=== PATIENT | female | born 1950 | race Caucasian/White ===

== ENCOUNTER → 2017-10-21 | Outpatient (REF) | payer MEDICARE | LOC: M LAB REF 14:35 | DX: E04.2 Nontoxic multinodular goiter (principal) | CPT/HCPCS: 88173 ==

== ENCOUNTER 2018-11-03 13:08 | Outpatient (RCR) | payer MEDICARE ==
--- NOTE | 2018-11-03 15:00 | NUR ---
Pt presents w/ mild dysphonia which she describes as "gravely" quality and feeling like the words get "stuck." Pt also demonstrates decreased breath support with clavicular and thoracic breath patterns. Vocal quality is hoarse w/ intermittent breaks in phonation. This vocal quality is consistent across tasks including sustained phonation, connected speech, and voiced/voiceless phonemes. Presentation is more suggestive of a muscle tension type dysphonia, although a concomitant mixed adductor-abductor type spasmodic dysphonia cannot be ruled out at this time. Recommend voice therapy services 1x/week for 30 days to improve breath support, decrease laryngeal strain, and improve vocal fold strength. Will also continue to probe for spasmodic dysphonia characteristics. Addendum: 11/03/[address] [facility] Amended: Links added.
== END 2018-11-28 ==
LOC: M ST 13:08
PROVIDERS: ATTEND Specialist
DX: R49.0 Dysphonia (principal)